=== PATIENT | male | born 2000 | race Two or more races ===

== ENCOUNTER 2021-05-03 21:49 | Emergency (ER) | payer MEDICAID, OTHER ==
[~2021-05-03] VITALS: Ht 162.6 cm; Wt 50.0 kg
[2021-05-03 22:50] VITALS: BP 119/70
== END 2021-05-03 23:21 ==
LOC: ED 23:15
DX: S06.0X1A Concussion with loss of consciousness of 30 minutes or less, initial encounter (principal); S02.2XXA Fracture of nasal bones, initial encounter for closed fracture; R07.89 Other chest pain; Y04.2XXA Assault by strike against or bumped into by another person, initial encounter; Y93.89 Activity, other specified; Y92.89 Other specified places as the place of occurrence of the external cause; Y99.8 Other external cause status
CPT/HCPCS: 21337; 70450; 70486; 71046; 72072; 72110; 99285